=== PATIENT | female | born 1975 | race African-American/Black ===

== ENCOUNTER 2018-08-21 00:24 | Emergency (ER) | payer SELFPAY ==
[2018-08-21 00:43] VITALS: BP 128/60
[2018-08-21] MEDS ORDERED: DEXAMETHASONE SOD PHOS INJ 10 MG/1 ML VIAL IM ONE (02:28)
--- NOTE | 2018-08-21 02:34 | ER Document Report ---
HPI - HPI Time Seen by Provider: 08/21/18 02:28 Pain Level: 4 Context: Patient is a 42-year-old female that comes to the emergency department for chief complaint of an itchy rash over the left antecubital area and over the left side of her chest. This started over the past couple of days, has worsened. She denies any other symptoms including other areas of rash, difficulty swallowing or breathing, wheezing, fever/chills, nausea/vomiting. [place] recently. - REPRODUCTIVE Reproductive: DENIES: : Past Medical History - General Information source: Patient - Social History Smoking Status: Never Smoker Frequency of alcohol use: None Drug Abuse: None Lives with: Family Family History: Reviewed & Not Pertinent - Medical History Medical History: Negative Surgical Hx: Negative - Immunizations Immunizations up to date: Yes Hx Diphtheria, Pertussis, Tetanus Vaccination: Yes Vertical Provider Document - CONSTITUTIONAL General Appearance: WD/WN, No Apparent Distress - INFECTION CONTROL TRAVEL OUTSIDE OF THE [place] IN LAST 30 DAYS: No - HEENT HEENT: Atraumatic, Normal ENT Exam, Normocephalic - NECK Neck: Normal Inspection - RESPIRATORY Respiratory: Breath Sounds Normal, No Respiratory Distress - CARDIOVASCULAR Cardiovascular: Regular Rate, Regular Rhythm - GI/ABDOMEN Gastrointestinal: Abdomen Soft, Abdomen Non-Tender - BACK Back: Normal Inspection - MUSCULOSKELETAL/EXTREMETIES Musculoskeletal/Extremeties: MAEW, FROM, Non-Tender - NEURO Level of Consciousness: Awake, Alert, Appropriate Motor/Sensory: No Motor Deficit, No Sensory Deficit - DERM Integumentary: No Rash - Dried and mildly erythematous excoriated areas over the left antecubital space and over the left chest. No induration or fluctuance, no vesicles or bulla, no pustules. No pain with palpation, no severe erythema. Course - Re-evaluation Re-evalutation: Examination consistent with somewhat benign-appearing atopic dermatitis, does not appear to be poison cristian, no evidence of shingles or infectious process. Because it is so localized I offered just a topical cream but patient is requesting IM steroids, she was provided with this. Discussed follow-up, expectations, return precautions. Patient states understanding and agreement. - Vital Signs Vital signs: Temp Pulse Resp BP Pulse Ox 97.7 F 74 18 128/60 H 99 08/21/18 00:42 08/21/18 00:42 08/21/18 00:42 08/21/18 00:42 08/21/18 00:42 Discharge - Discharge Clinical Impression: Skin rash Condition: Stable Disposition: HOME, SELF-CARE Additional Instructions: Evaluation is consistent with atopic dermatitis, the exact cause is uncertain at this time. Recommendation is to apply the topical steroid prescribed along with the steroids you were given. You can take [id number] antihistamine such as cetirizine during the day or Benadryl at night to sleep. Follow-up with dermatology if symptoms continue. Return if you worsen including difficulty swallowing or breathing, spreading rash, pain developing over the areas, fever/chills, or any other concerning symptoms. Prescriptions: Triamcinolone Acetonide [Aristocort 0.1% Cream] 1 applic TP BID #1 tub Referrals: SHIRLEY MOSELEY DO [ACTIVE STAFF] - Follow up as needed
== END 2018-08-21 03:20 | disposition home or self-care (01) ==
LOC: ER 00:24
DX: R21 Rash and other nonspecific skin eruption (principal); L29.9 Pruritus, unspecified
CPT/HCPCS: 99282; J1100